=== PATIENT | female | born 1995 | race African-American/Black ===

== ENCOUNTER 2016-07-30 22:49 | Emergency (ER) | payer OTHER ==
[~2016-07-30] VITALS: Ht 154.9 cm; Wt 71.2 kg
[2016-07-31 01:59] VITALS: BP 127/84
== END 2016-07-31 02:00 | disposition home or self-care (01) ==
LOC: EDBD 22:49 → EME 22:49 → EDSEX 22:49 → EME 07-31 02:00
DX: S06.0X0A Concussion without loss of consciousness, initial encounter (principal); M54.2 Cervicalgia; V49.20XA Unspecified car occupant injured in collision with unspecified motor vehicles in nontraffic accident, initial encounter
CPT/HCPCS: 70450; 72125; 99281; 99284